=== PATIENT | female | born 1990 | race Caucasian/White ===

== ENCOUNTER 2016-11-20 11:57 | Outpatient (CLI) ==
[2016-07-01 16:58] VITALS: BMI 29.8
[2016-11-20 12:47] LABS: BASOPHILS # (AUTO) 0.1 K/uL (0-0.2); BASOPHILS % (AUTO) 0.6 % (0.0-3.0); EOSINOPHILS # (AUTO) 0.3 K/ul (0.0-0.7); EOSINOPHILS % (AUTO) 3.9 % (0.0-7.0); HEMATOCRIT 42.3 % (37.0-47.0); IMMATURE GRANULOCYTE % (AUTO) 0.3 % (0.0-5.0); LYMPHOCYTES # (AUTO) 2.2 K/uL (0.60-3.4); LYMPHOCYTES % (AUTO) 27.8 (10.0-50.0); MEAN CORPUSCULAR HEMOGLOBIN 29.4 pg (27.0-31.0); MEAN CORPUSCULAR HGB CONC 33.1 (31.8-35.4); MEAN CORPUSCULAR VOLUME 88.7 fl (81.0-99.0); MONOCYTES # (AUTO) 0.5 K/uL (0.4-2.0); MONOCYTES % (AUTO) 6.8 (0-10); NEUTROPHILS # (AUTO) 4.8 K/ul (2.0-6.9); NEUTROPHILS % (AUTO) 60.6; PLATELET COUNT 234 10^3/uL (140-440); RED BLOOD COUNT 4.77 10^6/ul (4.20-5.40); WHITE BLOOD COUNT 7.98 K/ul (4.6-10.2)
[2016-11-20 13:48] LABS: ALBUMIN 4.4 g/dL (3.4-5.0); ALBUMIN/GLOBULIN RATIO 1.13; ANION GAP 14.9; BILIRUBIN,TOTAL 0.37 mg/dL (0.00-1.20); BUN/CREATININE RATIO 14.86; CALCIUM 10.2 mg/dL (8.2-10.2); CREATININE 0.74 mg/dL (0.60-1.30); POTASSIUM 3.9 mmol/L (3.5-5.10); TOTAL PROTEIN 8.3 g/dL (6.4-8.2)
== END 2016-11-20 11:58 | disposition home or self-care (01) ==
LOC: LAB 11:57
PROVIDERS: ATTEND Nurse Practitioner Family
DX: F41.9 Anxiety disorder, unspecified (principal)
CPT/HCPCS: 36415; 80053; 84439; 84443; 85025

== ENCOUNTER 2016-11-21 07:51 | Outpatient (CLI) ==
[2016-07-01 16:58] VITALS: BMI 29.8
--- NOTE | 2016-11-21 09:17 | MRI ---
EXAM: Brain MRI without contrast. HISTORY: Headache syndrome. COMPARISON: None. TECHNIQUE: Multiplanar, multisequence MR images were acquired of the brain without contrast. FINDINGS: The midline structures are central and the craniocervical junction is unremarkable. The ventricles and sulci are normal in size and configuration. There are no abnormal extra-axial fluid collections. The brain parenchyma has no diffusion restriction to suggest acute hypoperfusion or infarction. The re is a small chronic infarct or dilated perivascular space in the right posterior external capsule. Remainder of the the brain parenchyma demonstrates no abnormal T2 hyperintensities. There are no abnormal foci of dark gradient echo signal. The corpus callosum is normal in configuration. The pi tuitary gland is normal in size with a mildly convex superior border and the posterior pituitary santiago ght spot is normally located. There are no intraorbital masses. Minor mucosal thickening is present in both maxillary antra. Mid dle ears and mastoids are unremarkable. Flow voids are present in the major intracranial arteries and dural venous sinuses. IMPRESSION: 1. No intracranial mass, hemorrhage or acute cerebral infarct. 2. 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
== END 2016-11-21 07:52 | disposition home or self-care (01) ==
LOC: RAD 07:51
PROVIDERS: ATTEND Nurse Practitioner Family
DX: G44.89 Other headache syndrome (principal); R42 Dizziness and giddiness

== ENCOUNTER 2017-04-17 18:41 | Emergency (ER) ==
[2017-04-17 18:46] VITALS: BP 120/75; TEMP 98.1; BMI 27.8
--- NOTE | 2017-04-17 18:56 | ED.PDOC ---
General ED Provider: Dr. REMY CEDILLO-ER Chief Complaint: Fall Stated Complaint: i tripped over my sons backpack--i hurt my neck and the back of my head Time Seen by Physician: 18:54 Mode of Arrival: Walk-In Information Source: Patient Exam Limitations: No limitations [facility] and Triage Documentation Reviewed and Agree: Yes Musculoskeletal Complaint Exam - Neck Pain Complaint/Exam Mechanism of Injury: Reports: Trauma Onset/Duration: today Symptoms Are: Still present Timing: Constant Initial Severity: Mild Current Severity: Moderate Location: Reports: Discrete (posterior neck and posterior head) Character: Reports: Dull, Aching, Stiffness Aggravating: Reports: Position, Movement Associated Signs and Symptoms: Reports: Headache. Denies: Swelling, Redness, Bruising, Fever, Nuchal rigidity, Weakness, Paresthesia Meningitis Risk Factors: Reports: None Cervical Spine Injury Risk Factors: Reports: None Related Surgical History: Reports: None Carotid Bruit Present: No Pain on Passive Flexion: Yes Positive Kernig's Sign: Yes ROM Limited In: Present: Flexion, Extension Pain Located at: posterior neck Tenderness: Present: Midline Focal Weakness: Present: None Focal Sensory Loss: Reports: None Differential Diagnoses: Cervical Fracture, Sprain, Strain Review of Systems - Review Of Systems Constitutional: Reports: No symptoms Eyes: Reports: No symptoms Ears, Nose, Mouth, Throat: Reports: No symptoms Respiratory: Reports: No symptoms Cardiac: Reports: No symptoms GI: Reports: No symptoms : Reports: No symptoms Musculoskeletal: Reports: Neck pain Skin: Reports: No symptoms Neurological: Reports: Headache Endocrine: Reports: No symptoms Hematologic/Lymphatic: Reports: No symptoms All Other Systems: Reviewed and Negative Past Medical History - Past Medical History Previously Healthy: Yes Endocrine: Reports: None Cardiovascular: Reports: None Respiratory: Reports: None Hematological: Reports: None Gastrointestinal: Reports: None Genitourinary: Reports: None Neuro/Psych: Reports: Depression Musculoskeletal: Reports: None Cancer: Reports: None Last Menstrual Period: beginning of this month - Surgical History General Surgical History: Reports: Tubal ligation, Cholecystectomy (gallbladder 2011 ), Adenoidectomy - Family History Family History: Reports: Unknown - Social History Smoking Status: Current every day smoker Hx Substance Use: No Alcohol Screening: Occasionally Lives: With family Physical Exam - Physical Exam Appearance: Well-appearing, No pain distress, Well-nourished Pain Distress: Mild Eyes: WILLIS, EOMI, Conjunctiva clear ENT: Ears normal, Nose normal, Oropharynx normal Neck: Supple Respiratory: Airway patent Cardiovascular: RRR, Pulses normal, No rub, No murmur GI/: Soft Musculoskeletal: Normal strength, ROM intact, No edema, No calf tenderness Skin: Warm, Dry, Normal color Neurological: Sensation intact, Motor intact, Reflexes intact, Cranial nerves intact, Alert, Oriented Psychiatric: Affect appropriate, Mood appropriate Interpretation - Radiology Interpretation Radiology Interpretation By: Radiologist Radiology Results: Negative Exam Interpreted: CT Scan Critical Care Note - Critical Care Note Total Time (mins): 0 Course - Course Orders, Labs, Meds: Orders Category Date Time Status C collar [ED IMMOBILIZATION] .ONCE EMERGENCY 04/17/17 18:[address] CERVICAL SPINE W/O CONTRAST Stat RADS 04/17/17 18:[address] HEAD W/O CONTRAST Stat RADS 04/17/17 18:52 Completed Vital Signs: Temp Pulse Resp BP Pulse Ox 04/17/17 18:43 98.1 F 89 16 120/75 98 Departure - Departure Time of Disposition: 19:30 Disposition: HOME SELF-CARE Discharge Problem: Closed head injury Qualifiers: Encounter type: initial encounter Qualified Code(s): S09.90XA - Unspecified injury of head, initial encounter Cervical strain, acute Qualifiers: Encounter type: initial encounter Qualified Code(s): S16.1XXA - Strain of muscle, fascia and tendon at neck level, initial encounter Instructions: Cervical Strain (ED) Condition: Good Pt referred to PMD for follow-up: Yes Additional Instructions: norco 5mg q 6hrs prn pain #12--flexeril 5mg tid prn #21--heat alt ice--f/u with pcp if not better in 72hrs Allergies/Adverse Reactions: Allergies morphine Adverse Reaction (Verified 04/17/17 18:45) Home Medications: Ambulatory Orders Acetaminophen [Tylenol Extra Strength] 500 mg PO Q6H PRN 02/10/13 Naproxen [Naprosyn] 500 mg PO Q12HR PRN #30 tablet 07/01/16 Topiramate [Topamax] 100 mg PO DAILY 04/17/17 Disposition Discussed With: Patient, Family
--- NOTE | 2017-04-17 19:22 | CT ---
EXAM: CT head without contrast 04/17/2017. Sagittal and coronal reformatted images obtained HISTORY: Fall COMPARISON: 11/21/2016 FINDINGS: There is no evidence of intracranial hemorrhage. The midline is maintained. There is no h ydrocephalus. No cerebellar tonsillar ectopia. Evaluation of the calvarium shows no fracture. Th e mastoid air cells are normally pneumatized. Left maxillary sinus mucosal thickening and air fluid level. The appearance is suggestive of acute sinusitis. IMPRESSION: No acute intracranial abnormality. Acute left maxillary sinusitis.
--- NOTE | 2017-04-17 19:28 | CT ---
EXAM: CT cervical spine without contrast HISTORY: Fall COMPARISON: None TECHNIQUE: CT cervical spine performed without intravenous contrast. Coronal and sagittal reformatt ed images obtained. TECHNIQUE: CT cervical spine performed without contrast. Coronal and sagital reeformatted images obta ined. FINDINGS: The vertebral bodies are normal in height. There is no anterolithesis or retrolithesis. Th ere is no fracture. Intervertebral disc spaces maintained. Central canal grossly patent. Prevertebral soft tissues appear normal. IMPRESSION: No fracture or subluxation
== END 2017-04-17 19:38 | disposition home or self-care (01) ==
LOC: ED 18:41
DX: S09.90XA Unspecified injury of head, initial encounter (principal); S16.1XXA Strain of muscle, fascia and tendon at neck level, initial encounter; W01.0XXA Fall on same level from slipping, tripping and stumbling without subsequent striking against object, initial encounter; F17.210 Nicotine dependence, cigarettes, uncomplicated
CPT/HCPCS: 99283

== ENCOUNTER 2017-05-06 12:41 | Outpatient (CLI) ==
[2017-05-06 13:03] LABS: BASOPHILS % (AUTO) 0.4 % (0.0-3.0); EOSINOPHILS # (AUTO) 0.4 K/ul (0.0-0.7); EOSINOPHILS % (AUTO) 5.2 % (0.0-7.0); HEMATOCRIT 40.9 % (37.0-47.0); HEMOGLOBIN 13.4 g/dl (12.0-16.0); IMMATURE GRANULOCYTE % (AUTO) 0.3 % (0.0-5.0); LYMPHOCYTES # (AUTO) 2.1 K/uL (0.60-3.4); LYMPHOCYTES % (AUTO) 26.4 (10.0-50.0); MEAN CORPUSCULAR HGB CONC 32.8 (31.8-35.4); MEAN CORPUSCULAR VOLUME 88.5 fl (81.0-99.0); MONOCYTES # (AUTO) 0.5 K/uL (0.4-2.0); MONOCYTES % (AUTO) 6.5 (0-10); NEUTROPHILS # (AUTO) 4.8 K/ul (2.0-6.9); NEUTROPHILS % (AUTO) 61.2; PLATELET COUNT 250 10^3/uL (140-440); RED BLOOD COUNT 4.62 10^6/ul (4.20-5.40); WHITE BLOOD COUNT 7.81 K/ul (4.6-10.2)
[2017-05-06 13:49] LABS: ALBUMIN 3.6 g/dL (3.4-5.0); ALBUMIN/GLOBULIN RATIO 0.95; BILIRUBIN,TOTAL 0.17 mg/dL (0.00-1.20); BUN/CREATININE RATIO 14.28; CALCIUM 9.7 mg/dL (8.2-10.2); CHOL/HDL RATIO 4.3 (4.5-5.5); CREATININE 0.7 mg/dL (0.60-1.30); TOTAL PROTEIN 7.4 g/dL (6.4-8.2)
== END 2017-05-06 12:42 | disposition home or self-care (01) ==
LOC: LAB 12:41
PROVIDERS: ATTEND Nurse Practitioner Family
DX: E75.6 Lipid storage disorder, unspecified (principal); F41.9 Anxiety disorder, unspecified
CPT/HCPCS: 36415; 80053; 80061; 84439; 84443; 85025

== ENCOUNTER 2017-09-08 10:00 | Emergency (ER) ==
[2017-09-08 10:15] VITALS: BP 110/73; TEMP 97.6; BMI 29.9
--- NOTE | 2017-09-08 12:40 | CT ---
EXAM: CT abdomen pelvis without contrast HISTORY: Abdominal and flank pain COMPARISON: CT abdomen pelvis 02/10/2013 TECHNIQUE: Serial axial images of the abdomen pelvis were performed from the lung bases through the inferior pelvis without contrast. These were viewed in multiple planes. FINDINGS: The lung bases are clear. Evaluation is limited due to lack of contrast. There is no hydronephrosis, hydroureter or obstructin g stone. There are three punctate nonobstructing right renal stones measuring up to 0.2 cm in diamet er. The left kidney is normal. The liver is normal. There has been a prior cholecystectomy. The s pleen is unchanged. The pancreas is normal. Adrenal glands are normal. The stomach is mildly diste nded. The small bowel in the abdomen and pelvis unremarkable. The colon is unremarkable. Appendix is norm al. No free air, free fluid or lymphadenopathy. The uterus is unremarkable. The ovaries bilaterally are normal. There is no free air, free fluid or pathologically enlarged lymph nodes. A few scatter ed retroperitoneal lymph nodes are noted and are non enlarged. The osseous structures are unremarkab le. IMPRESSION: 1. No obstructive uropathy or hydronephrosis with multiple nonobstructing punctate right renal stone s. 2. Prior cholecystectomy. 3. Few nonspecific lymph nodes are noted in the retroperitoneum. 4. Spleen is unchanged and upper limit of normal for size.
--- NOTE | 2017-09-08 13:11 | ED.PDOC ---
General ED Provider: Dr. LYNNE ALANIZ Chief Complaint: Back Pain Stated Complaint: back pain, fLANK PAIN Time Seen by Physician: 10:00 Mode of Arrival: Walk-In Information Source: Patient Exam Limitations: No limitations [facility] and T[facility] Documentation Reviewed and Agree: Yes Reviewed sepsis parameters & appropriate labs ordered?: Yes System Inflammatory Response Syndrome: Not Applicable Sepsis Protocol: For patient's 13 years and over: Temp is 96.8 and below OR 101 and greater Pulse >90 BPM Resp >20/minute Acutely Altered Mental Status Are patient's symptoms suggestive of a new infection, such as: -Pneumonia -Skin, Soft Tissue -Endocarditis -UTI -Bone, Joint Infection -Implantable Device -Acute Abdominal Infection -Wound Infection -Meningitis -Blood Stream Catheter Infection -Unknown System Inflammatory Response Syndrome: Not Applicable Musculoskeletal Complaint Exam - Back Pain Complaint/Exam Mechanism of Injury: Reports: No known trauma Onset/Duration: 3 DAYS Symptoms Are: Still present Timing: Intermittent Episodes Lasting: Days Initial Severity: Moderate Current Severity: Moderate Location: Reports: Discrete Character: Reports: Aching, Spasmodic Aggravating: Reports: None Alleviating: Reports: None Associated Signs and Symptoms: Reports: Abdominal pain (SUPRAPUBIC), Flank pain Related History: Reports: Similar episode (UTI RELATED ) TAD Risk Factors: Reports: None AAA Risk Factors: Reports: None Cauda Equina Risk Factors: Reports: None Epidural Abcess Risk Factors: Reports: None Focal Tenderness: No Paraspinal Muscle Tenderness: No Paraspinal Muscle Spasm: No Scoliosis: No Lordosis: No Kyphosis: No SLR Test: Right Negative, Left Negative Focal Weakness: Present: None Focal Sensory Loss: Present: None Gait: Present: Normal Differential Diagnoses: Renal Colic (UTI) Review of Systems - Review Of Systems Constitutional: Reports: No symptoms Eyes: Reports: No symptoms Ears, Nose, Mouth, Throat: Reports: No symptoms Respiratory: Reports: No symptoms Cardiac: Reports: No symptoms GI: Reports: No symptoms : Reports: No symptoms Musculoskeletal: Reports: Back pain Skin: Reports: No symptoms Neurological: Reports: No symptoms Endocrine: Reports: No symptoms Hematologic/Lymphatic: Reports: No symptoms All Other Systems: Reviewed and Negative Past Medical History - Past Medical History Previously Healthy: Yes Endocrine: Reports: None Cardiovascular: Reports: None Respiratory: Reports: None Hematological: Reports: None Gastrointestinal: Reports: None Genitourinary: Reports: None Neuro/Psych: Reports: Depression Musculoskeletal: Reports: None Cancer: Reports: None Last Menstrual Period: ended 09/01/17 - Surgical History General Surgical History: Reports: Tubal ligation, Cholecystectomy (gallbladder 2011 ), Adenoidectomy - Family History Family History: Reports: Unknown - Social History Smoking Status: Current every day smoker, Heavy tobacco smoker Hx Substance Use: No Alcohol Screening: Occasionally Physical Exam - Physical Exam Appearance: Well-appearing, No pain distress, Well-nourished Eyes: WILLIS, EOMI, Conjunctiva clear ENT: Ears normal, Nose normal, Oropharynx normal Respiratory: Airway patent, Breath sounds clear, Breath sounds equal, Respirations nonlabored Cardiovascular: RRR, Pulses normal, No rub, No murmur GI/: Soft, Nontender, No masses, Bowel sounds normal, No Organomegaly Musculoskeletal: Normal strength, ROM intact, No edema, No calf tenderness Skin: Warm, Dry, Normal color Neurological: Sensation intact, Motor intact, Reflexes intact, Cranial nerves intact, Alert, Oriented Psychiatric: Affect appropriate, Mood appropriate Interpretation - Radiology Interpretation Radiology Interpretation By: Radiologist Radiology Results: No acute changes Critical Care Note - Critical Care Note Total Time (mins): 0 Course - Course Hematology/Chemistry: 09/08/17 10:32 09/08/17 10:32 Orders, Labs, Meds: Lab Review 09/08/17 09/08/17 09/08/17 10:32 10:32 10:55 WBC 8.72 RBC 4.18 L Hgb 12.2 Hct 36.8 L MCV 88.0 MCH 29.2 MCHC 33.2 RDW Coeff of Adrian 14.7 Plt Count 226 Immature Gran % (Auto) 0.2 Neut % (Auto) 59.5 Lymph % (Auto) 27.8 [place] % (Auto) 6.3 Eos % (Auto) 5.7 Baso % (Auto) 0.5 Immature Gran # (Auto) 0.0 Neut # 5.2 Lymph # 2.4 [place] # 0.6 Eos # 0.5 Baso # 0.0 Sodium 140 Potassium 4.0 Chloride 107 Carbon Dioxide 26 Anion Gap 11.0 BUN 12 Creatinine 0.72 Estimated GFR (MDRD) 96.00 BUN/Creatinine Ratio 16.66 Glucose 87 Calcium 9.4 Total Bilirubin 0.3 AST 16 ALT 17 Alkaline Phosphatase 74 Total Protein 7.2 Albumin 3.8 Globulin 3.4 Albumin/Globulin Ratio 1.12 Urine Color Yellow Urine Clarity Cloudy Urine pH 7.5 Ur Specific [place] 1.015 Urine Protein Negative Urine Glucose (UA) Negative Urine Ketones Negative Urine Blood Negative Urine Nitrite Negative Urine Bilirubin Negative Urine Urobilinogen 0.2 Ur Leukocyte Esterase Negative Ur Squamous Epith Cells 2-5 Amorphous Sediment 3+ Urine Bacteria 1+ Urine Test 09/08/17 10:55 WBC RBC Hgb Hct MCV MCH MCHC RDW Coeff of [place] Plt Count Immature Gran % (Auto) Neut % (Auto) Lymph % (Auto) [place] % (Auto) Eos % (Auto) Baso % (Auto) Immature Gran # (Auto) Neut # Lymph # [place] # Eos # Baso # Sodium Potassium Chloride Carbon Dioxide Anion Gap BUN Creatinine Estimated GFR (MDRD) BUN/Creatinine Ratio Glucose Calcium Total Bilirubin AST ALT Alkaline Phosphatase Total Protein Albumin Globulin Albumin/Globulin Ratio Urine Color Urine Clarity Urine pH Ur Specific [place] Urine Protein Urine Glucose (UA) Urine Ketones Urine Blood Urine Nitrite Urine Bilirubin Urine Urobilinogen Ur Leukocyte Esterase Ur Squamous Epith Cells Amorphous Sediment Urine Bacteria Urine Test Negative Orders Category Date Time Status CBC W/ AUTO DIFF Stat LAB 09/08/17 10:32 Completed COMPREHENSIVE METABOLIC PANEL Stat LAB 09/08/17 10:32 Completed URINALYSIS C & S IF INDICATED Stat LAB 09/08/17 10:55 Completed URINE CULTURE Stat LAB 09/08/17 10:55 Received URINE Stat LAB 09/08/17 10:[address] ABD/PEL WO RENAL STONE PROT Stat RADS 09/08/17 10:26 Completed Vital Signs: Temp Pulse Resp BP Pulse Ox 09/08/17 10:02 97.6 F 79 20 110/73 99 Departure - Departure Time of Disposition: 13:11 Disposition: HOME SELF-CARE Discharge Problem: Backache UTI (urinary tract infection) Qualifiers: Hematuria presence: without hematuria Abdominal pain Qualifiers: Abdominal location: unspecified location Qualified Code(s): R10.9 - Unspecified abdominal pain Instructions: Urinary Tract Infection in Women (ED), Abdominal Pain (ED) Condition: Good Pt referred to PMD for follow-up: Yes IPMP verified?: Yes Additional Instructions: Take medications as prescribed. Follow up with your doctor. Prescriptions: Hydrocodone/Acetaminophen [[place] 10-325 Tablet] 1 each PO Q8HR #14 tablet Sulfamethoxazole/Trimethoprim [Bactrim Ds 800/160 mg] 1 tab PO Q12HR 5 Days #10 tablet Allergies/Adverse Reactions: Allergies morphine Adverse Reaction (Verified 09/08/17 10:13) Home Medications: Ambulatory Orders Acetaminophen [Tylenol Extra Strength] 500 mg PO Q6H PRN 02/10/13 Naproxen [Naprosyn] 500 mg PO Q12HR PRN #30 tablet 07/01/16 Topiramate [Topamax] 100 mg PO DAILY 04/17/17 Hydrocodone/Acetaminophen [[place] 10-325 Tablet] 1 each PO Q8HR #14 tablet Sulfamethoxazole/Trimethoprim [Bactrim Ds 800/160 mg] 1 tab PO Q12HR 5 Days #10 tablet 09/08/17
== END 2017-09-08 13:15 | disposition home or self-care (01) ==
LOC: ED 10:00
DX: N39.0 Urinary tract infection, site not specified (principal); R10.9 Unspecified abdominal pain; F17.210 Nicotine dependence, cigarettes, uncomplicated
CPT/HCPCS: 36415; 74176; 80053; 81001; 81025; 85025; 87086; 99283

== ENCOUNTER 2017-12-04 10:30 | Outpatient (CLI) ==
--- NOTE | 2017-12-04 11:21 | DI ---
EXAM: Supine abdominal radiograph. HISTORY: Acute cystitis, hematuria. COMPARISON: CT 02/10/2013. FINDINGS: No calcified urinary tract stones are seen. No soft tissue masses identified. Clips seen in the right upper quadrant. Bowel gas pattern is nonobstructive. No acute osseous abnormalities i dentified. IMPRESSION: No radiopaque urinary tract calculi identified.
== END 2017-12-04 10:31 | disposition home or self-care (01) ==
LOC: FCC-LAB 10:30
PROVIDERS: ATTEND Nurse Practitioner Family
DX: N30.01 Acute cystitis with hematuria (principal); M54.9 Dorsalgia, unspecified; Z87.442 Personal history of urinary calculi

== ENCOUNTER 2018-05-20 11:56 | Emergency (ER) ==
[2018-05-20 12:03] VITALS: BP 139/84; TEMP 98.3; BMI 29.7
[2018-05-20 12:34] LABS: URINE PREGNANCY TEST NEGATIVE (NEGATIVE)
--- NOTE | 2018-05-20 13:22 | ED.PDOC ---
General ED Provider: Dr. LYNNE ALANIZ Chief Complaint: Fall Stated Complaint: fall injury left arm , left hip Time Seen by Physician: 12:00 (seen with kia mota at all times ) Mode of Arrival: Walk-In Information Source: Patient Exam Limitations: No limitations Nursing and Triage Documentation Reviewed and Agree: Yes Does patient meet sepsis criteria?: No System Inflammatory Response Syndrome: Not Applicable Sepsis Protocol: For patient's 13 years and over: Temp is 96.8 and below OR 101 and greater Pulse >90 BPM Resp >20/minute Acutely Altered Mental Status Are patient's symptoms suggestive of a new infection, such as: -Pneumonia -Skin, Soft Tissue -Endocarditis -UTI -Bone, Joint Infection -Implantable Device -Acute Abdominal Infection -Wound Infection -Meningitis -Blood Stream Catheter Infection -Unknown Trauma/Injury Complaint Exam - Trauma Complaint/Exam Location of Pain or Injury: Reports: LUE (forear), LLE (hip/pelvis) Onset/Duration: today Symptoms Are: Still present Timing of Treatment: Immediate Initial Severity: Mild Current Severity: Mild Character: Reports: Aching Aggravating: Reports: Movement Alleviating: Reports: Rest Associated Signs and Symptoms: Denies: LOC, Confusion, Memory loss, Lethargy, Vomiting, Bleeding, Bruising, Swelling, Extremity disuse, Painful respiration, Hoarseness, Dysphagia, Hemoptysis, Significant blood loss : No Penetrating Injury Risk Factors: Reports: None Nexus Low Risk Criteria: No post-midline CS tender, No evidence of intoxicat., No Altered LOC, No focal neuro deficit, No distracting injuries Glascow Coma Scale (see protocol): 15 Trauma Findings: Present: Pelvic tenderness (left hip). Absent: [place] eyes, Hemotympanum, Nasal deformity, Dental tenderness, Neck tenderness, Neck spasm, Airway obstructed, Trachea displaced, Decreased breath sounds, Muffled heart sounds, Weak pulses, Abdominal distention, Pelvic instability Skin Findings: Present: Normal findings Differential Diagnoses: Fracture, Sprain, Strain Review of Systems - Review Of Systems Constitutional: Reports: No symptoms Eyes: Reports: No symptoms Ears, Nose, Mouth, Throat: Reports: No symptoms Respiratory: Reports: No symptoms Cardiac: Reports: No symptoms GI: Reports: No symptoms : Reports: No symptoms Musculoskeletal: Reports: Joint pain (left hip, forearmleft) Skin: Reports: No symptoms Neurological: Reports: No symptoms Endocrine: Reports: No symptoms Hematologic/Lymphatic: Reports: No symptoms All Other Systems: Reviewed and Negative Past Medical History - Past Medical History Previously Healthy: Yes Endocrine: Reports: None Cardiovascular: Reports: None Respiratory: Reports: None Hematological: Reports: None Gastrointestinal: Reports: None Genitourinary: Reports: None Neuro/Psych: Reports: Depression Musculoskeletal: Reports: None Cancer: Reports: None Last Menstrual Period: this week - Surgical History General Surgical History: Reports: Tubal ligation, Cholecystectomy (gallbladder 2011 ), Adenoidectomy - Family History Family History: Reports: Unknown - Social History Smoking Status: Current every day smoker, Light tobacco smoker Hx Substance Use: No Alcohol Screening: Occasionally Physical Exam - Physical Exam Appearance: Well-appearing, No pain distress, Well-nourished Eyes: WILLIS, EOMI, Conjunctiva clear ENT: Ears normal, Nose normal, Oropharynx normal Respiratory: Airway patent, Breath sounds clear, Breath sounds equal, Respirations nonlabored Cardiovascular: RRR, Pulses normal, No rub, No murmur GI/: Soft, Nontender, No masses, Bowel sounds normal, No Organomegaly Musculoskeletal: Normal strength, ROM intact, No edema, No calf tenderness Skin: Warm, Dry, Normal color Neurological: Sensation intact, Motor intact, Reflexes intact, Cranial nerves intact, Alert, Oriented Psychiatric: Affect appropriate, Mood appropriate Interpretation - Radiology Interpretation Radiology Interpretation By: Radiologist Radiology Results: No acute changes Re-Evaluation - Re-Evaluation Time of Re-Evaluation: 13:22 (no neck or back pain no head injury ) Status: Improved Vital Signs Stable: Yes Pain Level: 2/10 Appearance: NAD Lungs: Clear Skin: Warm and Dry Neuro: Alert and Oriented X3 CV: RRR Critical Care Note - Critical Care Note Total Time (mins): 0 Course - Course Orders, Labs, Meds: Lab Review 05/20/18 12:20 Urine Test Negative Orders Category Date Time Status URINE Stat LAB 05/20/18 12:20 Completed FOREARM, LEFT 2 VIEWS Stat RADS 05/20/18 12:23 Ordered HIP, LEFT 2 VIEWS Stat RADS 05/20/18 12:24 Ordered PELVIS 1 OR 2 VIEWS Stat RADS 05/20/18 12:24 Ordered Vital Signs: Temp Pulse Resp BP Pulse Ox 05/20/18 11:57 98.3 F 129 H 20 139/84 98 Departure - Departure Time of Disposition: 14:00 (THIS PT DENIED ALL OTHER INJURIES EXCEPT WHAT WAS LISTED MAY WOOD PRESENT AT ALL TIMES ) Disposition: HOME SELF-CARE Discharge Problem: Sprain of forearm, left Qualifiers: Encounter type: initial encounter Qualified Code(s): S63.502A - Unspecified sprain of left wrist, initial encounter Sprain of left hip Qualifiers: Encounter type: initial encounter Qualified Code(s): S73.102A - Unspecified sprain of left hip, initial encounter Instructions: Hip Sprain (ED), Sprain (ED) Condition: Good Pt referred to PMD for follow-up: Yes IPMP verified?: No Allergies/Adverse Reactions: Allergies morphine Adverse Reaction (Verified 05/20/18 12:05) Home Medications: Ambulatory Orders Acetaminophen [Tylenol Extra Strength] 500 mg PO Q6H PRN 02/10/13 Topiramate [Topamax] 100 mg PO DAILY 04/17/17 Lamotrigine [Lamictal Xr] 50 mg PO BEDTIME 05/20/18 Disposition Discussed With: Patient, Family
--- NOTE | 2018-05-20 13:46 | DI ---
EXAM: The left forearm two-view HISTORY: Fall COMPARISON: None FINDINGS: The bones are normal. Alignment is normal. No focal soft tissue abnormality. IMPERSSION: Normal examination.
--- NOTE | 2018-05-20 13:47 | DI ---
EXAM: Left hip two-view HISTORY: Fall COMPARISON: None FINDINGS: The bones are normal. The hip joint is normal. No focal soft tissue abnormality. IMPERSSION: Normal examination.
--- NOTE | 2018-05-20 13:47 | DI ---
EXAM: Pelvis one-view HISTORY: Fall COMPARISON: None FINDINGS: No fracture or dislocation. Sacroiliac joints intact. Sacral arcuate intact. Joints are normal. No focal soft tissue abnormality. IMPERSSION: No fracture or dislocation.
== END 2018-05-20 14:15 | disposition home or self-care (01) ==
LOC: ED 11:56
DX: S63.502A Unspecified sprain of left wrist, initial encounter (principal); S73.102A Unspecified sprain of left hip, initial encounter; W19.XXXA Unspecified fall, initial encounter; F17.210 Nicotine dependence, cigarettes, uncomplicated
CPT/HCPCS: 81025; 99283